=== PATIENT | male | born 1975 ===

== ENCOUNTER 2017-10-21 22:51 | Emergency (ER) | payer SELFPAY ==
[~2017-10-21] VITALS: Ht 182.9 cm; Wt 79.4 kg
--- NOTE | 2017-10-21 23:50 | NUR ---
PT IN ROOM ALERT AWAKE IN NO ACUTE DISTRESS. C/O PAIN TO LEFT ANKLE. AWAITING MD ORDERS AT THIS TIME.
--- NOTE | 2017-10-22 00:10 | NUR ---
PT SEEN BY FOR EVMELANY
--- NOTE | 2017-10-22 01:23 | NUR ---
Patient discharged to home in stable conditon. Written and verbal after care instructions given. Patient verbalizes understanding of instructions. Ambulated from ER with stable gait while using crutches. All belongings with patient. VSS
[2017-10-22 01:24] VITALS: BP 128/80
== END 2017-10-22 01:25 | disposition home or self-care (01) ==
LOC: ER 22:56
DX: S93.402A Sprain of unspecified ligament of left ankle, initial encounter (principal); W17.2XXA Fall into hole, initial encounter; Y93.89 Activity, other specified; Y92.89 Other specified places as the place of occurrence of the external cause; Y99.8 Other external cause status
CPT/HCPCS: 73610; A4663